=== PATIENT | female | born 1990 | race Caucasian/White ===

== ENCOUNTER → 2019-01-16 | Outpatient (CLI) | payer OTHER | LOC: LAB 14:02 | PROVIDERS: ATTEND Family Medicine | DX: E55.9 Vitamin D deficiency, unspecified (principal) | CPT/HCPCS: 36415; 82306 ==

== ENCOUNTER → 2019-01-24 | Outpatient (CLI) | payer OTHER ==
[~2019-01-24] MED LIST: GADOBUTROL 15 MMOL/15 ML (GADAVIST) VIAL IV ONE
--- NOTE | 2019-01-24 15:41 | Diagnostic Imaging Report ---
CLINICAL INDICATION: Patient has partial seizures and staring for periods of time, head pressure and dizziness. EXAM: MRI of the brain performed without and with 12 cc of Gadavist IV contrast. Sequences include axial DWI, ADC map, axial gradient echo, axial T2, axial FLAIR, axial T1, axial T1 post IV contrast, coronal T1 fat-sat post IV contrast, and sagittal T1 post IV contrast. COMPARISON: None. FINDINGS: There is a roughly 7 mm subtle area of enhancement involving the parasagittal right frontal subcortical region which is seen on axial T1 post IV contrast sequence series 8, image #16. There is no associated other signal abnormality in this region on the other sequences. 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 There is no evidence of acute cerebral infarct, intracranial hemorrhage, or gross mass effect. There is no other areas of abnormal IV contrast enhancement. The brain parenchymal volume appears appropriate for patient's age. There is normal [place]-white matter distinction. There is no significant midline shift or herniation. The [place] vascular structures show no gross abnormality as visualized. The pituitary gland, sella, and suprasellar regions are unremarkable as visualized. There is no evidence of hydrocephalus. The basal cisterns are unremarkable. The skull, extracranial soft tissue, and orbits are unremarkable. The paranasal sinuses are unremarkable. Temporal bones show no significant abnormality. 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 2: Otherwise, unremarkable MRI of the brain. Dictated by: Dictated on workstation # [id number]
== END ==
LOC: RAD 13:52
PROVIDERS: ATTEND Internal Medicine
DX: R40.20 Unspecified coma (principal); I78.1 Nevus, non-neoplastic; R42 Dizziness and giddiness
CPT/HCPCS: 70553

== ENCOUNTER → 2019-04-21 | Outpatient (CLI) | payer OTHER | LOC: LAB 12:32 | PROVIDERS: ATTEND Family Medicine | DX: E55.9 Vitamin D deficiency, unspecified (principal); N92.6 Irregular menstruation, unspecified | CPT/HCPCS: 36415; 82306; 82672; 83001; 83002; 84144 ==